=== PATIENT | male | born 1995 | race Caucasian/White ===

== ENCOUNTER 2022-01-13 14:46 | Emergency (ER) | payer MEDICAID ==
[~2022-01-13] VITALS: Ht 175 cm; Wt 141.0 kg
[~2022-01-13 14:46] MED LIST: ALBU17AE23 IH; HYDR1TAB PO; LISD70CA3 PO; RSP2T PO
--- NOTE | 2022-01-13 15:31 | ED EENT ---
History of Present Illness General Chief Complaint: Oral/Throat Problems Stated Complaint: SORE THROAT Nursing Triage Note: PT STATES HE WAS SEEN AT THE WALK IN CLINIC THIS MORNING, PT STATES MONO AND STREP + BUT WAS GIVEN SUPREX, AN ABX HE IS ALLERGIC TO. HARD TO EAT OR DRINK Allergies and Home Medications Allergies Coded Allergies: Cefixime (Verified Allergy, 12/02/12) Patient Home Medication List Hydrocodone Bit/Acetaminophen (Vicodin 5-500 Tablet) 1 Each Tablet, 1-2 EACH PO Q4HR PRN Prescribed by: JOSEPHINE VAZQUEZ on 12/10/121942 Past Dsflauc-Uiduoi-Bnvdjm Hx Patient Social History Tobacco Use?: Yes Tobacco type used: Cigarettes Smoking Status: Current Everyday Smoker Substance use?: No Alcohol Use?: Yes Alcohol type: Beer Immunizations Up To Date Tetanus Booster (TDap): Unknown Second COVID19 Vaccination Salo: YES Seasonal Allergies Seasonal Allergies: No Past Medical History Surgery/Hospitalization HX: ASTHMA Asthma Reproductive Disorders: No Sexually Transmitted Disease: No Gastroesophageal Reflux ADD/ADHD, Bipolar Physical Exam Vital Signs Vital Signs - First Documented 01/13/22 14:52 Temp 37.3 Pulse 93 Resp 22 B/P (MAP) 152/104 (120) Pulse Ox 100 O2 Delivery Room Air Height, Weight, BMI Height: '" Weight: 245lbs. oz. 111.189448zp; 46.00 BMI Method:Stated Progress/Results/Core Measures Results/Orders Vital Signs/I&O 01/13/22 14:52 Temp 37.3 Pulse 93 Resp 22 B/P (MAP) 152/104 (120) Pulse Ox 100 O2 Delivery Room Air Blood Pressure Mean: 120 Departure Impression Primary Impression: Mononucleosis Additional Impression: Group A streptococcal infection Disposition: 01 HOME, SELF-CARE Condition: Stable Departure-Patient Inst. Decision time for Depature: 15:26 Referrals: NO,LOCAL PHYSICIAN (PCP/Family) Primary Care Physician Patient Instructions: Mononucleosis, Strep Throat (DC) Add. Discharge Instructions: Plan: 1. Take antibiotics as previously directed. 2. You can drink popsicles, Jell-O to help cool and soothe your throat. Also drinking the salt broth from [employer] or Chicken noodle soup with will also help your throat pain. 3. You can take Hydrocodone Elixer every [address] not drive while taking. 4. May take Ibuprofen as needed for discomfort between elixer doses. You can buy Ibuprofen liquid if you prefer. 5. Return to ER for any new, concerning, or worsening symptoms. All discharge instructions reviewed with patient and/or family. Voiced understanding. Scripts Hydrocodone Bit/Acetaminophen (LORTAB 7.5-325 MG/15 ML UDC) 15 Ml Solution 15 ML PO Q6H, #200 ML 0 Refills Prov: MARICRUZ MOTA BINDER SORTER 01/13/22 MARICRUZ MOTA BINDER SORTER Jan 13, 2022 15:31
[2022-01-13] MEDS ORDERED: HYDR15SO6 PO (15:33)
[2022-01-13 15:39] VITALS: BP 152/104
== END 2022-01-13 15:40 | disposition home or self-care (01) ==
LOC: EDUNIT# 14:46 → ER 14:50
DX: B27.90 Infectious mononucleosis, unspecified without complication (principal); B95.0 Streptococcus, group A, as the cause of diseases classified elsewhere; F17.210 Nicotine dependence, cigarettes, uncomplicated; Z88.1 Allergy status to other antibiotic agents
CPT/HCPCS: 99283

== ENCOUNTER 2022-05-16 16:18 | Emergency (ER) | payer MEDICAID ==
[~2022-05-16] VITALS: Ht 175 cm; Wt 118.0 kg
[~2022-05-16 16:18] MED LIST changes: +HYDR15SO6 PO
[2022-05-16] MEDS ORDERED: morphine INJ 10 MG/ML 1ML (SYR OR VIAL) IVP STA (16:44)
--- NOTE | 2022-05-16 17:38 | ED Upper Extremity ---
General Chief Complaint: Upper Extremity Stated Complaint: FINGER INJURY Nursing Triage Note: PT KNIFE SHUT ON FIRST FINGER L HAND. PT HAS LAC TO TIP OF FINGER Source: patient Exam Limitations: no limitations (LISA LYNN APRN) History of Present Illness Date Seen by Provider: May 16, 2022 Time Seen by Provider: 17:31 Initial Comments 27-year-old male presents to the ED with complaints of laceration to left index finger. States that he was working on a vehicle, was using his pocket knife and the pocket knife closed on his finger around 4 PM. States his last tetanus was less than 5 years ago. Denies any past medical history, does not take any medications. (LISA LYNN APRN) Allergies and Home Medications Allergies Coded Allergies: cefixime (Verified Allergy, Unknown, 05/16/22) Patient Home Medication List Home Medication List Reviewed: Yes (LISA LYNN APRN) Hydrocodone Bit/Acetaminophen (Vicodin 5-500 Tablet) 1 Each Tablet, 1-2 EACH PO Q4HR PRN Prescribed by: JOSEPHINE VAZQUEZ on 12/10/121942 Hydrocodone Bit/Acetaminophen (Lortab 7.5-325 Mg/15 Ml Udc) 15 Ml Solution, 15 ML PO Q6H Prescribed by: MARICRUZ MOTA on 01/13/22 153 Review of Systems Constitutional: no symptoms reported Skin: other (Laceration) (LISA LYNN APRN) Past Rhlqpzh-Irejsm-Uroxxz Hx Patient Social History Tobacco Use?: No Substance use?: No Alcohol Use?: Yes Alcohol type: Beer Alcohol Frequency: Rarely Pt feels they are or have been: No (LISA LYNN APRN) Immunizations Up To Date Tetanus Booster (TDap): Unknown First/Initial COVID19 Vaccinat: YES Second COVID19 Vaccination Salo: YES Third COVID19 Vaccination Date: YES (LISA LYNN APRN) Seasonal Allergies Seasonal Allergies: No (LISA LYNN APRN) Past Medical History Surgery/Hospitalization HX: ASTHMA Asthma Reproductive Disorders: No Sexually Transmitted Disease: No Gastroesophageal Reflux ADD/ADHD, Bipolar (LISA LYNN APRN) Physical Exam Vital Signs Vital Signs - First Documented 4/1/23 4/1/23 16:25 19:03 Temp 37.1 Pulse 102 Resp 18 B/P (MAP) 149/110 (123) Pulse Ox 100 O2 Delivery Room Air (CLEO CARTWRIGHT MD) Vital Signs Capillary Refill : Less Than 3 Seconds (LISA LYNN APRN) Height, Weight, BMI Height: '" Weight: 245lbs. oz. 111.086432fy; 38.00 BMI Method:Stated General Appearance: WD/WN, no apparent distress Neck: supple, normal inspection Respiratory: no respiratory distress, no accessory muscle use Hand: Left, laceration (Distal end of index finger through finger nail) Neurologic/Psychiatric: alert, normal mood/affect Skin: normal color, warm/dry (LISA LYNN APRN) Procedures/Interventions Wound Location: Upper Extremities (Distal end of left index finger) Wound's Depth, Shape: linear Wound Explored: clean Irrigated w/ Saline (ccs): 200 Anesthesia: 1% Lidocaine Suture: Chromic Suture Size: 4-0 Number of Sutures: 2 (LISA LYNN APRN) Progress/Results/Core Measures Results/Orders Blood Pressure Mean: 123 Progress Progress Note : Progress Note Patient seen and evaluated, resting comfortably in recliner, no acute distress. Will repair laceration with sutures. 1849 laceration repaired with 2 Chromic Gut sutures, see procedure note. I would have like to have placed 1-2 more sutures, but lidocaine wore off quickly, and patient did not want to be re-numbed, he did not want any more sutures. Discharge instructions and return precautions provided. (LISA LYNN APRN) Departure Impression Primary Impression: Laceration of finger Disposition: 01 HOME, SELF-CARE Condition: Stable Departure-Patient Inst. Decision time for Depature: 18:52 (LISA LYNN APRN) Referrals: NO,LOCAL PHYSICIAN (PCP/Family) Primary Care Physician Patient Instructions: Laceration Repair With Stitches (DC) Add. Discharge Instructions: Keep your hand clean and dry. You may wash your hands with soap and water, do not scrub vigorously. Do not soak your hand. You may take Tylenol or ibuprofen as needed for pain. The sutures will absorb in approximately 1 to 2 weeks. You do not need to come back to have them removed. Return for signs of infection including redness, swelling, or drainage from the laceration site. Or come back for any new, concerning, or worsening symptoms. All discharge instructions reviewed with patient and/or family. Voiced understanding. Work/School Note: Work Release Form Date Seen in the Emergency Department: May 16, 2022 Return to Work: May 17, 2022 Restrictions: No Restrictions ATTENDING PHYSICIAN NOTE: I was physically present as attending physician in the emergency department during the care of this patient, but I was not directly involved in the decision making or delivery of care for this patient. (CLEO CARTWRIGHT MD) LISA LYNN APRN May 16, 2022 17:38 CLEO CARTWRIGHT MD May 18, 2022 18:49
[2022-05-16] MEDS ORDERED: LIDOCAINE 1% INJ 10 ML VIAL INJ ONE (18:15)
[2022-05-16 19:03] VITALS: BP 145/99
== END 2022-05-16 19:03 | disposition home or self-care (01) ==
LOC: EDUNIT# 16:18 → ER 16:24
DX: S61.211A Laceration without foreign body of left index finger without damage to nail, initial encounter (principal); W26.0XXA Contact with knife, initial encounter

== ENCOUNTER 2022-06-25 18:53 | Emergency (ER) | payer MEDICAID ==
[~2022-06-25] VITALS: Ht 179 cm; Wt 136.0 kg
--- NOTE | 2022-06-25 19:17 | ED General ---
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; [facility] [place] Allergies and Home Medications Allergies Coded Allergies: cefixime (Verified Allergy, Unknown, 05/16/22) Patient Home Medication List Home Medication List Reviewed: Yes Amoxicillin (Amoxicillin) 875 Mg Tablet, 875 MG PO BID Prescribed by: DANNI ESPARZA on 06/25/222000 Hydrocodone Bit/Acetaminophen (Vicodin 5-500 Tablet) 1 Each Tablet, 1-2 EACH PO Q4HR PRN Prescribed by: JOSEPHINE VAZQUEZ on 12/10/121942 Hydrocodone Bit/Acetaminophen (Lortab 7.5-325 Mg/15 Ml Udc) 15 Ml Solution, 15 ML PO Q6H Prescribed by: MARICRUZ MOTA on 01/13/22 1534 Review of Systems Review of Systems Constitutional: see HPI, chills, fever EENTM: no symptoms reported Respiratory: no symptoms reported Cardiovascular: no symptoms reported Gastrointestinal: no symptoms reported Genitourinary: no symptoms reported Musculoskeletal: no symptoms reported Skin: no symptoms reported Psychiatric/Neurological: No Symptoms Reported Hematologic/Lymphatic: No Symptoms Reported Immunological/Allergic: no symptoms reported Past Ikyxdsi-Mhxytk-Oghgop Hx Patient Social History Tobacco Use?: Yes Tobacco type used: Cigarettes Smoking Status: Current Everyday Smoker Substance use?: No Alcohol Use?: Yes Alcohol Frequency: Once in a while Immunizations Up To Date Tetanus Booster (TDap): Unknown First/Initial COVID19 Vaccinat: YES Second COVID19 Vaccination Salo: YES Third COVID19 Vaccination Date: YES Seasonal Allergies Seasonal Allergies: No Past Medical History Surgery/Hospitalization HX: ASTHMA Surgeries: No Respiratory: Yes Asthma Cardiac: No Neurological: No Reproductive Disorders: No Sexually Transmitted Disease: No Genitourinary: No Gastrointestinal: Yes Gastroesophageal Reflux Musculoskeletal: No Endocrine: No HEENT: No Cancer: No Psychosocial: Yes ADD/ADHD, Bipolar Integumentary: No Blood Disorders: No Family Medical History SOCIAL HISTORY: -SMOKES UP TO 2 PPD -ETOH--OCCASIONAL USE -DRUGS--DENIES USE Physical Exam Vital Signs Vital Signs - First Documented 06/25/22 06/25/22 19:08 20:16 Temp 37.9 Pulse 115 Resp 20 B/P (MAP) 130/75 (93) Pulse Ox 96 O2 Delivery Room Air Capillary Refill : Height, Weight, BMI Height: '" Weight: 245lbs. oz. 111.427561zu; 38.00 BMI Method:Stated General Appearance: No Apparent Distress, WD/WN, Obese HEENT: PERRL/EOMI, TMs Normal, Moist Mucous Membranes, Pharyngeal Erythema; No Tonsillar Exudate, No Tonsillar Enlargement Neck: Full Range of Motion, Normal Inspection, Non Tender, Supple; No Lymphadenopathy (L), No Lymphadenopathy (R) Respiratory: Normal Breath Sounds, No Accessory Muscle Use, No Respiratory Distress Cardiovascular: No Edema, No JVD, No Murmur, Normal Peripheral Pulses, Tachycardia (115) Gastrointestinal: Non Tender, Soft Back: No CVA Tenderness Extremity: Normal Capillary Refill, Normal Inspection, No Pedal Edema Neurologic/Psychiatric: Alert, Oriented x3, No Motor/Sensory Deficits, Normal Mood/Affect, dietary manager II-XII Norm as Tested Skin: Warm/Dry (VERY WARM), Other (FLUSHED) Procedures/Interventions Suture Size: 4-0 Progress/Results/Core Measures Suspected Sepsis SIRS Temperature: Pulse: Respiratory Rate: Blood Pressure / Mean: Results/Orders Lab Results Laboratory Tests Test 06/25/22 19:12 06/25/22 19:15 Range/Units Influenza Type A (RT-PCR) Not Detected Not Detecte Influenza Type B (RT-PCR) Not Detected Not Detecte SARS-CoV-2 RNA (RT-PCR) Detected H Not Detecte Group A Streptococcus Screen POSITIVE H NEGATIVE My Orders Orders - DANNI ESPARZA DO Rapid Strep A Screen (06/25/22 19:12) Covid 19 Inhouse Test (06/25/22 19:12) Influenza A And B By Pcr (06/25/22 19:12) Isolation Central Supply Req (06/25/22 19:12) Ibuprofen Tablet (Motrin Tablet) (06/25/22 19:30) Rx-Amoxicillin Capsule (Rx-Polymox Capsu (06/25/22 20:01) Rx-Nirmatrelvir/Ritonavir(Eua) (Rx-Paxlo (06/25/22 20:15) Medications Given in ED Current Medications Medications Dose Ordered Sig/Chasity Route Start Time Stop Time Status Last Admin Dose Admin Ibuprofen 800 mg ONCE ONCE PO 06/25/22 19:30 06/25/22 19:31 DC 06/25/22 19:43 800 MG Vital Signs/I&O 06/25/22 06/25/22 19:08 20:16 Temp 37.9 37.2 Pulse 115 108 Resp 20 20 B/P (MAP) 130/75 (93) 124/62 Pulse Ox 96 97 O2 Delivery Room Air Capillary Refill : Progress Note : Progress Note PLACED IN ISOLATION ROOM PPE WORN COVID, FLU AND STREP TESTING DONE OFFERED SHOT OF PENICILLIN AND PT DECLINES SHOT, WOULD LIKE PILLS INSTEAD RISK FACTORS FOR WORSENING OF COVID SYMPTOMS INCLUDE OBESITY AND HISTORY OF ASTHMA. WILL PRESCRIBE PAXLOVID. REVIEWED PRIOR RECORDS, ALL ER VISITS. DISCUSSED TEST RESULTS, ANTICIPATED COURSE, SYMPTOMATIC TREATMENT, NEED FOR QUARANTINE, MEDICATIONS, NEED FOR FOLLOW UP AND RETURN PRECAUTIONS. Departure Impression Primary Impression: COVID-19 virus infection Additional Impression: Strep pharyngitis Disposition: HOME, SELF-CARE Condition: Stable Departure-Patient Inst. Decision time for Depature: 19:50 Referrals: [facility] (PCP/Family) Primary Care Physician Patient Instructions: Strep Throat ED, COVID-19 ED, Preventing the Spread of an Infectious Disease, Nirmatrelvir and Ritonavir FDA Fact Sheet Add. Discharge Instructions: TAKE PAXLOVID PRESCRIBED FOR COVID LOTS OF CLEAR LIQUIDS--WATER, BROTH, JELLO, GATORADE TYLENOL 1 GRAM PLUS MOTRIN 800 MG 4 TIMES A DAY FOR PAIN OR FEVER OVER THE COUNTER MEDICATIONS NEEDED IF YOU HAVE COUGH AND CONGESTION FOLLOW UP WITH [facility] IN 4-5 DAYS IF NO BETTER, RETURN TO ER IF WORSE QUARANTINE X 7 DAYS, OR LONGER IF YOU STILL HAVE FEVER AND SYMPTOMS ARE NOT IMPROVING. Scripts Amoxicillin (Amoxicillin) 875 Mg Tablet 875 MG PO BID, #20 TAB Prov: DANNI ESPARZA DO 06/25/22 Work/School Note: Work Release Form Date Seen in the Emergency Department: June 25, 2022 Return to Work: July 03, 2022 DANNI ESPARZA DO June 25, 2022 19:17
[2022-06-25] MEDS ORDERED: IBUPROFEN 800 MG (MOTRIN) TAB PO ONE (19:30)
[2022-06-25] MEDS ORDERED: RX-AMOXICILLIN 500 MG CAP #3 PPK PO STA (20:01)
[2022-06-25] MEDS ORDERED: AMOX875T2 PO (20:01)
[2022-06-25] MEDS ORDERED: RX-NIRMATRELVIR/RITONAVIR (PAXLOVID) #30 TABS PO SCH (20:15)
[2022-06-25 20:16] VITALS: BP 124/62
== END 2022-06-25 20:16 | disposition home or self-care (01) ==
LOC: EDUNIT# 18:53 → ER 18:56
DX: U07.1 COVID-19 (principal); J02.0 Streptococcal pharyngitis; E66.9 Obesity, unspecified; F17.210 Nicotine dependence, cigarettes, uncomplicated; Z68.38 Body mass index [BMI] 38.0-38.9, adult; Z88.0 Allergy status to penicillin
CPT/HCPCS: 87430; 87636; 99283

== ENCOUNTER 2022-09-02 15:43 | Emergency (ER) | payer MEDICAID ==
[~2022-09-02] VITALS: Ht 175.3 cm; Wt 131.1 kg
[~2022-09-02 15:43] MED LIST changes: +AMOX875T2 PO
[2022-09-02 16:06] LABS: ALBUMIN 4.4 GM/DL (3.2-4.5)
[2022-09-02 16:07] LABS: POTASSIUM 3.8 MMOL/L (3.6-5.0)
[2022-09-02 16:08] LABS: CALCIUM 9.2 MG/DL (8.5-10.1)
[2022-09-02 16:09] LABS: TOTAL PROTEIN 7.2 GM/DL (6.4-8.2)
[2022-09-02 16:11] LABS: BILIRUBIN,TOTAL 0.7 MG/DL (0.1-1.0)
--- NOTE | 2022-09-02 16:11 | ED Chest Pain ---
General Chief Complaint: Chest Pain Stated Complaint: CHEST PAIN - LEFT ARM WEAKNESS Nursing Triage Note: PT AMBULATE TO ROOM 07 WITHOUT DIFFICULTY WITH C/O CHEST PAIN X1.5 WEEKS. PT REPORTS LEFT ARM NUMBNESS STARTING TODAY. PT REPORTS PAIN IS WORSE WHEN LEFT ARM IS RAISED OVER HIS HEAD. History of Present Illness Date Seen by Provider: Sep 02, 2022 Time Seen by Provider: 16:00 Initial Comments 27-year-old male presents with chest pain x1 and half weeks. He is having nonspecific left-sided pain. 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 He reports that the numbness gets worse with movement especially up over his head. No reports of fevers chills, nausea, vomiting, shortness of breath. Allergies and Home Medications Allergies Coded Allergies: cefixime (Verified Allergy, Unknown, 05/16/22) Patient Home Medication List Home Medication List Reviewed: Yes Amoxicillin (Amoxicillin) 875 Mg Tablet, 875 MG PO BID Prescribed by: DANNI ESPARZA on 06/25/222000 Hydrocodone Bit/Acetaminophen (Vicodin 5-500 Tablet) 1 Each Tablet, 1-2 EACH PO Q4HR PRN Prescribed by: JOSEPHINE VAZQUEZ on 12/10/121942 Hydrocodone Bit/Acetaminophen (Lortab 7.5-325 Mg/15 Ml Udc) 15 Ml Solution, 15 ML PO Q6H Prescribed by: MARICRUZ MOTA on 01/13/22 153 Review of Systems Review of Systems Constitutional: see HPI; No chills, No fever Cardiovascular: No Symptoms Reported, Chest Pain Gastrointestinal: No Symptoms Reported Genitourinary: No Symptoms Reported Musculoskeletal: see HPI Skin: no symptoms reported Psychiatric/Neurological: See HPI, Numbness Endocrine: No Symptoms Reported Past Xuktqqb-Iowmnc-Ffskyr Hx Patient Social History Tobacco Use?: No Smoking Status: Never a Smoker Smokeless Tobacco Frequency: Current Everyday User Use of E-Cig and/or Vaping dev: No Use of E-Cig and/or Vaping N[place]um: Never a User Substance use?: No Alcohol Use?: No Pt feels they are or have been: No Immunizations Up To Date Tetanus Booster (TDap): Unknown First/Initial COVID19 Vaccinat: YES Second COVID19 Vaccination Salo: YES Third COVID19 Vaccination Date: YES Seasonal Allergies Seasonal Allergies: No Past Medical History Surgery/Hospitalization HX: ASTHMA Surgeries: No Respiratory: Yes Asthma Cardiac: No Neurological: No Reproductive Disorders: No Sexually Transmitted Disease: No Genitourinary: No Gastrointestinal: Yes Gastroesophageal Reflux Musculoskeletal: No Endocrine: No HEENT: No Cancer: No Psychosocial: Yes ADD/ADHD, Bipolar Integumentary: No Blood Disorders: No Family Medical History SOCIAL HISTORY: -SMOKES UP TO 2 PPD -ETOH--OCCASIONAL USE -DRUGS--DENIES USE Physical Exam Vital Signs Vital Signs - First Documented 09/02/22 15:45 Temp 36.9 Pulse 114 Resp 19 B/P (MAP) 144/82 (102) O2 Delivery Room Air Capillary Refill : Less Than 3 Seconds Height, Weight, BMI Height: '" Weight: 245lbs. oz. 111.888741md; 42.00 BMI Method:Stated General Appearance: Other (Mildly diaphoretic and red consistent with heat exposure) HEENT: PERRL/EOMI Neck: Non Tender, Supple Respiratory: Lungs Clear, Normal Breath Sounds Cardiovascular: Regular Rate, Rhythm Gastrointestinal: Non Tender, Soft Extremity: Normal Capillary Refill, Other (Tenderness and discomfort with range of motion that reproduces symptoms especially with arm raise above head ) Neurologic/Psychiatric: Alert, Oriented x3, No Motor/Sensory Deficits, Normal Mood/Affect, assignment desk assistant II-XII Norm as Tested Skin: Warm/Dry Procedures/Interventions Suture Size: 4-0 Progress/Results/Core Measures Results/Orders Lab Results Laboratory Tests Test 09/02/22 15:50 Range/Units White Blood Count 9.4 4.3-11.0 10^3/uL Red Blood Count 5.25 4.30-5.52 10^6/uL Hemoglobin 15.6 13.3-17.7 g/dL Hematocrit 46 40-54 % Mean Corpuscular Volume 87 80-99 fL Mean Corpuscular Hemoglobin 30 25-34 pg Mean Corpuscular Hemoglobin Concent 34 32-36 g/dL Red Cell Distribution Width 13.5 10.0-14.5 % Platelet Count 260 130-400 10^3/uL Mean Platelet Volume 9.8 9.0-12.2 fL Immature Granulocyte % (Auto) 0 % Neutrophils (%) (Auto) 68 42-75 % Lymphocytes (%) (Auto) 24 12-44 % Monocytes (%) (Auto) 8 0-12 % Eosinophils (%) (Auto) 0 0-10 % Basophils (%) (Auto) 0 0-10 % Neutrophils # (Auto) 6.4 1.8-7.8 10^3/uL Lymphocytes # (Auto) 2.2 1.0-4.0 10^3/uL Monocytes # (Auto) 0.7 0.0-1.0 10^3/uL Eosinophils # (Auto) 0.0 0.0-0.3 10^3/uL Basophils # (Auto) 0.0 0.0-0.1 10^3/uL Immature Granulocyte # (Auto) 0.0 0.0-0.1 10^3/uL Sodium Level 139 135-145 MMOL/L Potassium Level 3.8 3.6-5.0 MMOL/L Chloride Level 109 H 98-107 MMOL/L Carbon Dioxide Level 21 21-32 MMOL/L Anion Gap 9 5-14 MMOL/L Blood Urea Nitrogen 14 7-18 MG/DL Creatinine 1.19 0.60-1.30 MG/DL Estimat Glomerular Filtration Rate 85 BUN/Creatinine Ratio 12 Glucose Level 130 H 70-105 MG/DL Calcium Level 9.2 8.5-10.1 MG/DL Corrected Calcium 8.9 8.5-10.1 MG/DL Magnesium Level 2.1 1.6-2.4 MG/DL Total Bilirubin 0.7 0.1-1.0 MG/DL Aspartate Amino Transf (AST/SGOT) 31 5-34 U/L Alanine Aminotransferase (ALT/SGPT) 60 H 0-55 U/L Alkaline Phosphatase 101 40-136 U/L Total Creatine Kinase 414 H 30-200 U/L C-Reactive Protein High Sensitivity 0.21 0.00-0.50 MG/DL Total Protein 7.2 6.4-8.2 GM/DL Albumin 4.4 3.2-4.5 GM/DL My Orders Orders - YUDI COKER L DO Ed Iv/Invasive Line Start (09/02/22 15:50) Ekg Tracing (09/02/22 15:50) Monitor-Rhythm Ecg Trace Only (09/02/22 15:50) Cbc With Automated Diff (09/02/22 15:50) Comprehensive Metabolic Panel (09/02/22 15:50) Creatine Kinase (09/02/22 15:50) Hs C Reactive Protein (09/02/22 15:50) Magnesium (09/02/22 15:50) Ua Culture If Indicated (09/02/22 15:50) Chest Pa/Lat (2 View) (09/02/22 15:50) Ns Iv 1000 Ml (Sodium Chloride 0.9%) (09/02/22 16:42) Ketorolac Injection (Toradol Injection) (09/02/22 16:42) Vital Signs/I&O 09/02/22 15:45 Temp 36.9 Pulse 114 Resp 19 B/P (MAP) 144/82 (102) O2 Delivery Room Air Blood Pressure Mean: 102 Progress Progress Note : Progress Note Patient diagnostic studies were ordered reviewed and interpreted by me. Patient's labs show slight elevation of CK consistent with heat exposure and likely mild heat illness. Patient EKG showed normal sinus rhythm, ventricular rate 99, MO [address] changes or elevation. Patient's chest x-ray wa s ordered reviewed and interpreted by me with no acute findings with final interpretation per radiology report. Patient's symptoms of his chest and arm are likely due to some musculoskeletal overuse injury with the type of work he is doing with possible shoulder impingement versus cervical radiculopathy and paresthesias. I discussed with him the need to follow with his primary care provider for recheck to determine if they want to do physical therapy versus for further imaging. Did encourage him to drink plenty of fluids since he works on a heat and to be cognitive of risk for heat illness. Patient is feeling better following treatment with some IV fluids. He is stable and discharged home. Patient is at increased risk for morbidity and mortality based on his social determinants of health Initial ECG Impression Date: Sep 02, 2022 Initial ECG Impression Time: 16:09 Initial ECG Rate: 101 Initial ECG Rhythm: S.Tach Initial ECG Intervals: Normal Initial ECG Impression: Normal Diagnostic Imaging Diagonstic Imaging: Xray Plain Films/CT/US/NM/MRI: chest Comments ate of Exam:09/02/22 CHEST PA/LAT (2 VIEW) EXAMINATION: Chest (PA and lateral). CLINICAL INDICATION: 27-year-old male, chest pain. COMPARISON: CT chest, abdomen and pelvis December 10, 2012. FINDINGS: Heart size and mediastinal contours are unremarkable. There is no identified pneumothorax. There is no pleural effusion. There is no identified focal airspace consolidation. IMPRESSION: No identified acute cardiopulmonary abnormality. Reviewed: Reviewed by Me, Reviewed/Discussed Departure Impression Primary Impression: Chest pain, musculoskeletal Additional Impressions: Impingement syndrome of left shoulder Heat exhaustion, unspecified, initial encounter Arm paresthesia, left Disposition: 01 HOME, SELF-CARE Condition: Stable Departure-Patient Inst. Referrals: [facility] (PCP/Family) Primary Care Physician Patient Instructions: Heat Illness ED, Shoulder Impingement (DC), Paresthesia (DC) Add. Discharge Instructions: Be sure to drink plenty of fluids and monitor your heat exposure. Please follow-up with your primary care provider to have your shoulder and arm numbness further evaluated. They may want to do further imaging such as an MRI to look at the nerves coming out of your neck and upper shoulder area to determine if there is any reversible causes. Gentle stretching of the lateral neck and shoulder muscles. 4% topical lidocaine with menthol cream or gel along with Tylenol or ibuprofen for chest wall and left arm discomfort. All discharge instructions reviewed with patient and/or family. Voiced understanding. YUDI COKER DO Sep 02, 2022 16:11
[2022-09-02 16:13] LABS: CREATININE SERUM 1.19 MG/DL (0.60-1.30)
[2022-09-02 16:14] LABS: BASOPHILS % (AUTO) 0 % (0-10); EOSINOPHILS % (AUTO) 0 % (0-10); HEMATOCRIT 46 % (40-54); HEMOGLOBIN 15.6 g/dL (13.3-17.7); LYMPHOCYTES # (AUTO) 2.2 10^3/uL (1.0-4.0); LYMPHOCYTES % (AUTO) 24 % (12-44); MEAN CORPUSCULAR HEMOGLOBIN 30 pg (25-34); MEAN CORPUSCULAR HGB CONC 34 g/dL (32-36); MEAN CORPUSCULAR VOLUME 87 fL (80-99); MEAN PLATELET VOLUME 9.8 fL (9.0-12.2); MONOCYTES # (AUTO) 0.7 10^3/uL (0.0-1.0); MONOCYTES % (AUTO) 8 % (0-12); NEUTROPHILS # (AUTO) 6.4 10^3/uL (1.8-7.8); NEUTROPHILS % (AUTO) 68 % (42-75); PLATELET COUNT 260 10^3/uL (130-400); WHITE BLOOD COUNT 9.4 10^3/uL (4.3-11.0)
[2022-09-02 16:15] LABS: MAGNESIUM 2.1 MG/DL (1.6-2.4)
[2022-09-02] MEDS ORDERED: NS IV 1000 ML 1,000 ML IV STA (16:42)
[2022-09-02] MEDS ORDERED: KETOROLAC 30 MG/ML VIAL IVP STA (16:42)
--- NOTE | 2022-09-02 17:13 | Diagnostic Imaging Report ---
EXAMINATION: Chest (PA and lateral). CLINICAL INDICATION: 27-year-old male, chest pain. COMPARISON: CT chest, abdomen and pelvis December 10, 2012. FINDINGS: Heart size and mediastinal contours are unremarkable. There is no identified pneumothorax. There is no pleural effusion. There is no identified focal airspace consolidation. IMPRESSION: No identified acute cardiopulmonary abnormality. Dictated by: Dictated on workstation # [id number]
[2022-09-02 17:54] VITALS: BP 133/76
== END 2022-09-02 17:54 | disposition home or self-care (01) ==
LOC: EDUNIT# 15:43 → ER 15:43
DX: R07.89 Other chest pain (principal); M75.42 Impingement syndrome of left shoulder; T67.5XXA Heat exhaustion, unspecified, initial encounter; R20.2 Paresthesia of skin; F17.210 Nicotine dependence, cigarettes, uncomplicated
CPT/HCPCS: 36415; 71046; 80053; 82550; 83735; 85025; 86141; 93005; 93041